=== PATIENT | male | born 1935 | race Caucasian/White ===

== ENCOUNTER → 2019-05-02 | Outpatient (CLI) | payer BC ==
[2019-05-02 12:55] LABS: CREATININE 1.5 mg/dL (0.6-1.3)
== END ==
LOC: M.LAB 10:00 → M.CT 11:00 → M.LAB 12:17
PROVIDERS: Internal Medicine
DX: I65.23 Occlusion and stenosis of bilateral carotid arteries (principal)

== ENCOUNTER → 2019-05-22 | Outpatient (CLI) | payer BC ==
[2019-05-22 09:19] LABS: CREATININE 1.3 mg/dL (0.6-1.3)
== END ==
LOC: M.LAB 05-14 16:22 → M.CT 09:30 → M.LAB 10:00 → M.CT 11:00
PROVIDERS: Surgery Vascular Surgery
DX: I65.23 Occlusion and stenosis of bilateral carotid arteries (principal); I71.4 Abdominal aortic aneurysm, without rupture; Z79.899 Other long term (current) drug therapy

== ENCOUNTER → 2019-05-29 | Outpatient (CLI) | payer BC | LOC: M.CT 08:22 | DX: I65.23 Occlusion and stenosis of bilateral carotid arteries (principal); I77.810 Thoracic aortic ectasia; I72.8 Aneurysm of other specified arteries; K80.80 Other cholelithiasis without obstruction; N40.0 Benign prostatic hyperplasia without lower urinary tract symptoms; N28.1 Cyst of kidney, acquired ==